=== PATIENT | male | born 1955 | race Hispanic/Latino ===

== ENCOUNTER 2018-10-09 10:39 | Day surgery (SDC) | payer BC, OTHER ==
[2018-10-08 08:44] VITALS: BMI 35.3
[2018-10-09] MEDS ORDERED: Lidocaine 2% MPF (5 ml) Inj ONE ×2 (11:58→12:29)
[2018-10-09] MEDS ORDERED: Bupivacaine HCl 0.5% PF (10 ml) Inj ONE ×2 (11:59→12:29)
[2018-10-09] MEDS ORDERED: ceFAZolin 1 gm in NS 2 GM/200 ML BAG IVPB ONE (11:59)
[2018-10-09] MEDS ORDERED: Midazolam 2 MG/2 ML VIAL ONE ×2 (12:29→13:08)
[2018-10-09] MEDS ORDERED: Oxycodone/Acetaminophen 5/325 mg Tab PO PRN ×2 (14:11)
--- NOTE | 2018-10-09 14:16 | PCM.SURG1 ---
Surgeon's Initial Post Op Note - Surgeon's Notes Surgeon: Dr. Randy Keith, DPM Packaging Designer: Dr. Erich Mcdaniel, PGY1, Dr. Jitendra Flower, PGY2 Type of Anesthesia: IV Sedation, Local Anesthesia Administered By: Dr. Naheed MD Pre-Operative Diagnosis: Bilateral 3rd digit hammering of digits Operative Findings: see dictation. I: Left 10 cc of 1:1 mixture of 1% Lidocaine and 0.5% Marcaine plain. Right 10 cc of 1:1 mixture of 1% Lidocaine and 0.5% Marcaine plain. M: 2-0 Vicryl, 3-0 Nylon Post-Operative Diagnosis: same as above Operation Performed: 1) Left 3rd digit arthroplasty. 2) Left 3rd digit flexor tenotomy. 3) Right 3rd digit arthroplasty Specimen/Specimens Removed: Left 3rd digit proximal phalanx head. Right 3rd digit proximal phalanx head Estimated Blood Loss: EBL {In ML}: 30 Blood Products Given: N/A Drains Used: No Drains Post-Op Condition: Good Date of Surgery/Procedure: 10/09/18 Time of Surgery/Procedure: 14:16
[2018-10-09] MEDS ORDERED: HYDROmorphone 0.5 mg/0.5 ml ISec IVP PRN (14:28)
[2018-10-09] MEDS ORDERED: Lactated Ringer's 1,000 ML IV SCH (14:30)
--- NOTE | 2018-10-09 14:47 | RAD ---
Date of service: 10/09/2018 PROCEDURE: Bilateral Feet Radiographs. HISTORY: s/p b/l 3rd digit arthroplasty COMPARISON: None. TECHNIQUE: 6 views obtained. FINDINGS: BONES: Right Foot: Status post resection of the distal aspect of the proximal phalanx of the 3rd digit. Left Foot: Status post resection of the distal aspect of the proximal phalanx of the 3rd digit. Bone alignment is normal. There is diffuse bone demineralization. There is no acute fracture or bone destruction. There are prominent plantar calcaneal spurs. 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 The remaining joint spaces are preserved. Left Foot: Mild degenerative osteoarthrosis in the 1st MTP and 1st tarsal metatarsal joints. The remaining joint spaces are preserved. SOFT TISSUES: Right Foot: Expected postoperative changes in the periarticular soft tissues in the 3rd toe. Left Foot: Expected postoperative changes in the periarticular soft tissues in the 3rd toe. OTHER FINDINGS: None. IMPRESSION: Status post dissection of the distal aspect of the proximal phalanx of the 3rd toe with expected postoperative changes in the periarticular soft tissues. 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 Bilateral large plantar calcaneal spurs.
[2018-10-09] MEDS ORDERED: Lactated Ringer's 500 ML IV ONE (14:52)
[2018-10-09 15:45] VITALS: PULSE 58; RESP 18
[2018-10-09 15:48] VITALS: BP 127/70; TEMP 97.7; O2SAT 97
--- NOTE | 2018-10-09 18:06 | PCM.OP ---
Operative Report - Operative Report Date of Surgery/Procedure: 10/09/18 Time of Surgery/Procedure: 12:30 Surgeon: Dr. Randy Keith, DPM Lead Database Administrator: Dr. Erich Mcdaniel PGY1, Dr. Jitendra Flower, PGY2 Anesthesia/Sedation: Anesthesiologist: Dr. Farfan Anesthesia: Intravenous Sedation with Local Anesthesia Pre-Operative Diagnosis: 1) Left 3rd digit Hammertoe 2) Right 3rd Digit Hammertoe Post-Operative Diagnosis: same as above Indication for Surgery: Name of Procedures 1) Left foot 3rd digit proximal interphalangeal joint arthroplasty 2) Left foot 3rd digit Flexor Tenotomy 2) Right foot 3rd digit proximal interphalangeal joint arthroplasty Indications: The patient is a 62 year-old male with the above diagnoses of Bilateral 3rd digit hammertoes with chronic, painful hyperkeratotic lesions to the tip of the 3rd digits bilaterally. The patient has exhausted conservative treatment at this time and now requests surgical intervention. The patient signed the consent after careful explanation of risks, benefits, complications and alternatives for surgical procedure. No guarantees were given nor implied. 2 grams of Ancef IV were given to the patient prior to the procedure. NPO status was confirmed prior to taking the patient to the operating room. Operative Findings: Preparation: The patient was brought to the operating room and placed on the operating room table in supine position. Well-padded pneumatic ankle tourniquets were applied to left and right ankles. After induction of IV sedation the patient received a total of 10 cc of 1:1 mixture of 1% Lidocaine and 0.5% Marcaine in a V-block type fashion proximal to the left 3rd metatarso- phalangeal joint. Patient then received 10 cc of 1:1 mixture of 1% Lidocaine and 0.5% Marcaine in a V-block type fashion proximal to the right 3rd metatarso- phalangeal joint. Next, the left and right foot were then prepped and draped in usual sterile manner. Attempt was made to inflate the ankle tourniquets to 250 mmHg, however, due to malfunctioning tourniquets, the procedure was performed wet. Procedure/Operation Description: Procedure 1: Left foot 3rd digit proximal interphalangeal joint arthroplasty Attention was then directed to the left 3rd digit where an elliptical incision was made with a #15 blade. It was approximately a 2 cm incision longitudinally over the 3rd proximal interphalangeal joint. Sharp dissection was carried down through the deep tissues being careful to identify and retract all vital neurovascular structures. All bleeders were ligated and cauterized as needed. At this time a transverse extensor tenotomy and capsulotomy were performed distal to the proximal interphalangeal joint. The head of the proximal phalanx was then freed of its capsular and ligamentous attachments with a sharp #15 blade. Next, utilizing the sagittal saw the head of the proximal phalanx was resected and passed from the operative site. Correction of the deformity was assessed at this time and noted to be excellent. The incision was then flushed with copious amounts of sterile normal saline. The extensor tendon of the 3rd digit was re- approximated and sutured with #2-0 Vicryl. The skin edges were then re- approximated with #3-0 Nylon with simple sutures. Procedure 2: Left foot 3rd digit Flexor Tenotomy Attention was then directed to the plantar aspect of 3rd digit where a percutaneous flexor tenotomy was performed with the use of a sterile #15 blade. The incision was at the level of the proximal interphalangeal joint in a traverse direction. The incision was closed with #3-0 Nylon with simple sutures. Procedure 3: Right foot 3rd digit proximal interphalangeal joint arthroplasty Attention was then directed to the right 3rd digit where an elliptical incision was made with a #15 blade. It was approximately a 2 cm incision longitudinally over the 3rd proximal interphalangeal joint. Sharp dissection was carried down through the deep tissues being careful to identify and retract all vital neurovascular structures. All bleeders were ligated and cauterized as needed. At this time a transverse extensor tenotomy and capsulotomy were performed distal to the proximal interphalangeal joint. The head of the proximal phalanx was then freed of its capsular and ligamentous attachments with a sharp #15 blade. Next, utilizing the sagittal saw the head of the proximal phalanx was resected and passed from the operative site. Correction of the deformity was assessed at this time and noted to be excellent. The incision was then flushed with copious amounts of sterile normal saline. The extensor tendon of the 3rd digit was re- approximated and sutured with #2-0 Vicryl. The skin edges were then re- approximated with #3-0 Nylon with simple sutures. Estimated Blood Loss: 30 mL Complications: none Discharge & Condition: Postoperative Condition: The patient tolerated the anesthesia and procedure well and was escorted to the recovery room with vital signs stable and neurovascular status intact to the right and left foot. Patient will follow with Dr. Randy Keith at the office within 1 week for post-operative care.
== END 2018-10-09 15:52 | disposition home or self-care (01) ==
LOC: C.SDS 10:39
PROVIDERS: ATTEND Podiatrist Foot & Ankle Surgery
DX: M20.41 Other hammer toe(s) (acquired), right foot (principal); M20.42 Other hammer toe(s) (acquired), left foot
CPT/HCPCS: 28232; 28285; 73630; 88304; J0690; J2250; J3010; J7120